=== PATIENT | male | born 1970 | race African-American/Black ===

== ENCOUNTER 2024-10-22 08:34 | Inpatient (IN) | payer BC ==
[2024-10-22] MEDS ORDERED: hydrOXYzine PAMOATE 25 MG CAPSULE (FP) PO PRN (09:05)
[2024-10-22] MEDS ORDERED: NICOTINE POLACRILEX 2 MG GUM BUC PRN (09:05)
[2024-10-22] MEDS ORDERED: LOPERAMIDE HCL 2 MG CAPSULE PO PRN (09:05)
[2024-10-22] MEDS ORDERED: IBUPROFEN 400 MG TABLET (FP) PO PRN (09:05)
[2024-10-22] MEDS ORDERED: POLYETHYLENE GLYCOL (HEALTHYLAX) 3350 17 GM PACKET PO PRN (09:05)
[2024-10-22] MEDS ORDERED: IBUPROFEN 600 MG TABLET (FP) PO PRN (09:05)
[2024-10-22] MEDS ORDERED: BENZONATATE 200 MG CAPSULE PO PRN (09:05)
[2024-10-22] MEDS ORDERED: MAG HYDROX/AL HYDROX/SIMETH 30 ML UNIT-DOSE CUP PO PRN (09:05)
[2024-10-22] MEDS ORDERED: NALOXONE (NARCAN) HCL 4 MG/0.1 ML SPRAY NS PRN (09:05)
[2024-10-22] MEDS ORDERED: BISMUTH SUBSALICYLATE 262 MG/15 ML BTL PO PRN (09:05)
[2024-10-22] MEDS ORDERED: guaiFENesin 600 MG TABLET.ER (FP) PO PRN (09:05)
[2024-10-22] MEDS ORDERED: BENZOCAINE/MENTHOL (CHLORASEPTIC ) LOZENGE MM PRN (09:05)
[2024-10-22] MEDS ORDERED: MAGNESIUM HYDROX 2400MG/30ML ORAL SUSPENSION 30 ML CUP PO PRN (09:05)
[2024-10-22 09:07] VITALS: BMI 21.2
[2024-10-22] MEDS: ONDANSETRON *ODT* 4 MG TABLET SL PRN (09:54)
[2024-10-22] MEDS ORDERED: PRENATAL VITAMINS W/ FOLIC ACID TABLET (FP) PO ONE (10:00)
[2024-10-22] MEDS ORDERED: NICOTINE 14 MG/24 HOURS TOPICAL PATCH TD ONE (10:00)
[2024-10-22] MEDS ORDERED: levETIRAcetam 500 MG TABLET (FP) PO ONE (10:00)
[2024-10-22] MEDS ORDERED: chlordiazePOXIDE HCL 25 MG CAPSULE ONE (10:00)
[2024-10-22] MEDS: levETIRAcetam 500 MG TABLET (FP) PO SCH (10:02)
[2024-10-22] MEDS: NICOTINE 14 MG/24 HOURS TOPICAL PATCH TD SCH (10:02)
[2024-10-22] MEDS: PRENATAL VITAMINS W/ FOLIC ACID TABLET (FP) PO SCH (10:02)
[2024-10-22] MEDS: LISINOPRIL 20 MG TABLET PO SCH (10:13)
[2024-10-22] MEDS: FAMOTIDINE 20 MG TABLET PO SCH (10:14)
[2024-10-22] MEDS: chlordiazePOXIDE HCL 25 MG CAPSULE PO SCH (10:15)
[2024-10-22] MEDS: NALTREXONE HCL 50 MG TABLET PO ONE (14:36)
[2024-10-22] MEDS: MELATONIN 5 MG TABLETS PO SCH (22:11)
[2024-10-22] MEDS: THIAMINE 100 MG TABLET PO SCH (22:11)
[2024-10-23 09:43] LABS: HEMOGLOBIN 11.9 g/dL (13.7-17.5); MCHC 32.2 g/dl (32.3-36.5); MEAN CELL VOLUME 91.8 fl (79.0-92.2); MEAN PLT VOLUME 11.2 fl (9.4-12.4); PLATELET COUNT # 238 x10^3/uL (163-337); RDW 14.6 % (12.2-16.1)
[2024-10-23 09:45] LABS: POTASSIUM 4.2 mmol/L (3.5-5.1)
[2024-10-23 09:52] LABS: CALCIUM 8.7 mg/dL (8.5-10.1)
[2024-10-23 09:53] LABS: ALBUMIN 3.3 g/dl (3.4-5.0); BLOOD UREA NITROGEN 15.4 mg/dL (7-18)
[2024-10-23 09:55] LABS: CREATININE 1.2 mg/dL (0.55-1.3)
[2024-10-23 09:58] LABS: BILIRUBIN,TOTAL 0.8 mg/dL (0.2-1); TOT PROT 6.6 g/dl (6.4-8.2)
[2024-10-23] MEDS: METHOCARBAMOL 500 MG TABLET PO PRN (10:39)
[2024-10-23] MEDS: NALTREXONE HCL 50 MG TABLET PO SCH (10:40)
[2024-10-24] MEDS: chlordiazePOXIDE HCL 25 MG CAPSULE PO SCH ×2 (05:48→22:36)
[2024-10-24] MEDS: HYDROCHLOROTHIAZIDE 12.5 MG CAPSULE (FP) PO SCH (10:55)
[2024-10-24] MEDS: cloNIDine HCL 0.1 MG TABLET PO ONE (17:25)
[2024-10-24] MEDS: chlordiazePOXIDE HCL 25 MG CAPSULE PO PRN (17:32)
[2024-10-24] MEDS: DICYCLOMINE HCL 10 MG CAPSULE PO PRN (19:21)
[2024-10-24] MEDS ORDERED: chlordiazePOXIDE HCL 25 MG CAPSULE PO SCH (20:00)
[2024-10-24] MEDS: ACETAMINOPHEN 325 MG TABLET (FP) PO PRN (22:38)
[2024-10-24] MEDS: amLODIPine BESYLATE 10 MG TABLET (FP) PO ONE ×2 (23:48→23:57)
[2024-10-24] MEDS: ASPIRIN COATED 81 MG TABLET.EC PO ONE ×2 (23:48→23:56)
[2024-10-25] MEDS ORDERED: chlordiazePOXIDE HCL 10 MG CAPSULE PO PRN
[2024-10-25] MEDS: chlordiazePOXIDE HCL 10 MG CAPSULE PO SCH (05:48)
[2024-10-25 12:39] VITALS: BP 154/97; PULSE 97; RESP 18; TEMP 98
[2024-10-26] MEDS ORDERED: chlordiazePOXIDE HCL 10 MG CAPSULE PO SCH (05:00)
[2024-10-27] MEDS ORDERED: chlordiazePOXIDE HCL 10 MG CAPSULE PO ONE (05:00)
== END 2024-10-25 14:35 | disposition home or self-care (01) | DRG 775 ==
LOC: YASAS 08:34 → Y6N 09:41
PROVIDERS: ADMIT Allergy & Immunology; ATTEND Allergy & Immunology
PROC: HZ2ZZZZ Detoxification Services for Substance Abuse Treatment (ICD-10-PCS; principal; 2024-10-22)
DX: F10.230 Alcohol dependence with withdrawal, uncomplicated (principal); F17.210 Nicotine dependence, cigarettes, uncomplicated; G40.909 Epilepsy, unspecified, not intractable, without status epilepticus; I10 Essential (primary) hypertension; K21.9 Gastro-esophageal reflux disease without esophagitis
CPT/HCPCS: 36415; 80053; 80305; 80307; 84484; 85027; 86780; 93005; 93010; Q0162